=== PATIENT | female | born 1990 | race Caucasian/White ===

== ENCOUNTER 2020-01-14 16:54 | Emergency (ER) | payer SELFPAY ==
[2020-01-14] MEDS ORDERED: KETOROLAC TROMETHAMINE 30 MG/1 ML VIAL IM ONE (17:01)
--- NOTE | 2020-01-14 17:01 | PDOC ---
Rapid Medical Evaluation Time Seen by Provider: 01/14/20 16:59 Medical Evaluation: 01/14/20 16:59 29 year old complaining of left elbow pain after hitting L elbow on piece of metal. States cannot move at elbow 2/2 pain PE Swelling to L elbow ttp over lateral aspect Plan XR Toradol Stanton Pt to precede to ED for further evaluation and treatment at the discretion of the provider in the ED
[2020-01-14 17:14] VITALS: BP 124/58; PULSE 89; TEMP 99.2; BMI 25.2
[2020-01-14] MEDS ORDERED: KETOROLAC TROMETHAMINE 30 MG/1 ML VIAL ONE (17:56)
--- NOTE | 2020-01-14 18:02 | PDOC ---
History of Present Illness - General Chief Complaint: Injury Stated Complaint: INJURD ELBOW Time Seen by Provider: 01/14/20 16:59 History Source: Patient Exam Limitations: No Limitations - History of Present Illness Initial Comments: 01/14/20 17:57 Patient is a 29-year-old female with no past medical history who presents to the ED with complaint of left elbow injury that she sustained a few hours ago. 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 She began to have pain immediately. She admits to some radiating numbness and tingling down to her fingers. She denies any open skin or drainage. She has not taken anything for symptoms. Past History - Medical History Allergies/Adverse Reactions: Allergies Allergy/AdvReac Type Severity Reaction Status Date / Time No Known Allergies Allergy Verified 01/14/20 17:04 Home Medications: Ambulatory Orders Ibuprofen [Motrin -] 600 mg PO TID PRN #21 tablet 01/14/20 - Psycho-Social/Smoking History Smoking History: Never smoked Have you smoked in the past 12 months: No Information on smoking cessation initiated: No - Substance Abuse Hx (Audit-C & DAST Scrn) How often the patient has a drink containing alcohol: Never Score: In Men: 4 or > Positive; In Women: 3 or > Positive: 0 Screen Result (Pos requires Nsg. Audit-10AR): Negative In the last yr the pt used illegal drug/Rx for NonMed reason: No Score: Yes response is considered Positive: 0 Screen Result (Positive result requires Nsg. DAST-10): Negative Review of Systems - Review of Systems Comments:: 01/14/20 17:57 - Review of Systems Able to Perform ROS?: Yes Constitutional: No: Fever, Chills, Loss of Appetite, Night Sweats, Weakness HEENTM: No: Eye Pain, Vision changes, Ear Pain, Throat Pain, Throat Swelling, Mouth Pain, Difficulty Swallowing Respiratory: No: Cough, Shortness of Breath, Wheezing, Sputum Production Cardiac (ROS): No: Chest Pain, Chest Tightness, Palpitations, Irregular Heart B eat, Edema ABD/GI: No: Nausea, Vomiting, Abdominal Pain, Diarrhea : No Dysuria, No Hematuria, No Frequency, No Urgency Musculoskeletal: No: Muscle Pain, Back Pain, Muscle Weakness, Neck Pain; positive: Left elbow injury Integumentary: No: Lesions, Rash Neurological: No: Headache, Numbness, Tingling, Weakness, Speech Difficulties *Physical Exam - Vital Signs Last Vital Signs Temp Pulse Resp BP Pulse Ox 99.2 F 89 18 124/58 L 99 01/14/20 17:00 01/14/20 17:00 01/14/20 17:00 01/14/20 17:00 01/14/20 17:00 - Physical Exam 01/14/20 17:58 - Physical Exam General Appearance: Nourished, Appropriately Dressed, No Distress HEENT: EOMI, Normal Voice, Hearing Grossly Normal Neck: Supple, No Lymphadenopathy (R), No Lymphadenopathy (L), No Rigidity, No Decreased range of motion Respiratory/Chest: Lungs Clear, Normal Breath Sounds. No Respiratory Distress, No Accessory Muscle Use Cardiovascular: Regular Rhythm, Regular Rate, S1, S2 Musculoskeletal: Normal Inspection. Left elbow with an olecranon bursitis appreciated. Moderate tenderness to palpation over the olecranon without step- off appreciated. ROM from -10 from full extension, full flexion. No tenderness over the radial head with pronation or supination. Compression over the cubital tunnel causes tingling into the fingers. Extremity: Normal Capillary Refill, Normal Inspection Integumentary: Normal Color, Dry. No Rash Neurologic: hall monitor II-XII NML intact, Fully Oriented, Alert, Normal Mood/Affect, Normal Response ED Treatment Course - RADIOLOGY Radiology Studies Ordered: Category Date Time Status ELBOW-LEFT [RAD] Stat Radiology 01/14/20 17:24 Completed Medical Decision Making - Medical Decision Making 01/14/20 18:00 Assessment: Patient is a 29-year-old female with an olecranon bursitis after a trauma. Plan: The patient has been made aware that her elbow does not appear to have any acute fractures. Her elbow has been wrapped with an Stanton bandage and she has been given instructions on gentle range of motion exercises, ice/heat treatment and taken Tylenol or ibuprofen for pain. We will send Motrin to her pharmacy. She will follow-up with orthopedics for further evaluation and treatment. She understands and agrees with this treatment plan and she is stable for discharge Discharge - Discharge Information Problems reviewed: Yes Clinical Impression/Diagnosis: Olecranon bursitis, left elbow Condition: Stable - Additional Discharge Information Prescriptions: Ibuprofen [Motrin -] 600 mg PO TID PRN #21 tablet PRN Reason: Pain - Follow up/Referral Referrals: Surya Alvarez DO [Staff Physician] - 1 week - Patient Discharge Instructions Patient Printed Discharge Instructions: DI for Elbow Bursitis Additional Instructions: Alternate ice and heat for your left elbow. Be sure to do gentle range of motion exercises to help preserve your range of motion. You can take it easy for the next few days. Take Motrin as prescribed but only as needed. Be sure to take the Motrin with food in your stomach. Follow-up with orthopedics as needed for your left elbow. - Post Discharge Activity Work/Back to School Note: Back to Work
== END 2020-01-14 18:16 | disposition home or self-care (01) ==
LOC: JER 16:54
PROC: 3E0233Z Introduction of Anti-inflammatory into Muscle, Percutaneous Approach (ICD-10-PCS; principal; 2020-01-14)
DX: M70.22 Olecranon bursitis, left elbow (principal)
CPT/HCPCS: 73070-TC-LT-FY; 99284-25